=== PATIENT | male | born 1930 | race Caucasian/White ===

== ENCOUNTER 2017-09-11 15:33 | Inpatient (IN) | payer MEDICARE ==
[~2017-09-11] VITALS: Ht 172.7 cm; Wt 77.8 kg
[~2017-09-11 15:33] MED LIST: ASPI1TAB69 PO; ATOR40TA16 PO; CALC1TAB12 PO; FISH1200 PO; MULT-6 PO
[2017-09-11 15:35] VITALS: BP 174/95; PULSE 115; RESP 18; TEMP 99.6; O2SAT 96
[2017-09-11 16:27] LABS: AUTOMATED NEUTROPHIL # 10.3 TH/MM3 (1.8-7.7); BASOPHIL # 0.1 TH/MM3 (0-0.2); BASOPHIL % 0.6 % (0.0-2.0); EOSINOPHIL # 0.1 TH/MM3 (0-0.4); EOSINOPHIL % 0.5 % (0.0-4.0); HEMATOCRIT 39.5 % (39.0-51.0); LYMPH % 6.4 % (9.0-44.0); LYMPHOCYTE # 0.8 TH/MM3 (1.0-4.8); MEAN CELL VOLUME 86.8 FL (80.0-100.0); MEAN CORPUSCULAR HEMOGLOBIN 28.5 PG (27.0-34.0); MEAN CORPUSCULAR HGB CONC 32.9 % (32.0-36.0); MONO % 7.2 % (0.0-8.0); MONOCYTE # 0.9 TH/MM3 (0-0.9); NEUT % 85.3 % (16.0-70.0); PLATELET COUNT 169 TH/MM3 (150-450); RED BLOOD COUNT 4.55 MIL/MM3 (4.50-5.90); WHITE BLOOD COUNT 12.1 TH/MM3 (4.0-11.0)
--- NOTE | 2017-09-11 16:33 | RADRPT ---
EXAM DATE/TIME: 09/11/2017 16:19 [facility] COMPARISON: No previous studies available for comparison. INDICATIONS : Short of breath. MEDICAL HISTORY : Hypertension. Arthritis. Melanoma. Atrial fibrillation. Coronary artery disease. SURGICAL HISTORY : CABG. Appendectomy. Back surgery. Skin cancer removal. Radiation therapy. Blood transfusions. ENCOUNTER: Initial ACUITY: 2 days PAIN SCORE: 0/10 LOCATION: Bilateral chest FINDINGS: Frontal and lateral views of the chest demonstrate a mildly enlarged cardiac silhouette in this patie nt post median sternotomy and CABG. There is a small right basilar pleural-parenchymal opacity and aguilar btle opacity at the left lung base. No pneumothorax is identified. The bones and soft tissues demonst rate no acute finding. CONCLUSION: 1. Small bilateral pleural effusions, right larger than left, with associated atelectasis and/or airs pace consolidation. 2. 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 Arnulfo Simmons MD on September 11, 2017 at 16:29 Board Certified Radiologist. This report was verified electronically.
[2017-09-11 16:43] LABS: INTERNATIONAL NORMALIZED RATIO 1.6 RATIO
[2017-09-11 16:57] LABS: ALBUMIN 2.9 GM/DL (3.4-5.0); AST (GOT) 30 U/L (15-37); BLOOD UREA NITROGEN 20 MG/DL (7-18); CALCIUM 8.6 MG/DL (8.5-10.1); CHLORIDE 108 MEQ/L (98-107); CREATININE 1.22 MG/DL (0.60-1.30); GLOMERULAR FILTRATION RATE 56 ML/MIN (>89); GLUCOSE,RANDOM 194 MG/DL (74-106); MAGNESIUM 2.1 MG/DL (1.5-2.5); SODIUM (NA) 141 MEQ/L (136-145)
[2017-09-11 17:04] LABS: ALKALINE PHOSPHATASE 172 U/L (45-117); ALT (GPT) 37 U/L (12-78); TOTAL BILIRUBIN ADULT 1.1 MG/DL (0.2-1.0); TOTAL PROTEIN 6.9 GM/DL (6.4-8.2); TROPONIN I 0.07 NG/ML (0.02-0.05)
[2017-09-11] MEDS ORDERED: FURO20TA PO (17:30)
[2017-09-11] MEDS ORDERED: MULT-65 PO (17:30)
[2017-09-11] MEDS ORDERED: ASPI81CH6 CHEW (17:30)
[2017-09-11 17:36] VITALS: BP 152/80; PULSE 101; RESP 29; O2SAT 98
--- NOTE | 2017-09-11 18:22 | PD ---
HPI Chief Complaint: Edema Time Seen by Provider: 17:27 Travel History International Travel<30 days: No Contact w/Intl Traveler<30days: No Traveled to known affect area: No History of Present Illness HPI This is not an 86-year-old male who presents to the emergency department with increasing swelling in his right arm in legs for 3 weeks, constant, severe, worsening associated with shortness of breath dyspnea on exertion. He is a very poor historian. He follows with Dr. Phoenix who is his action finisher. He says he's had some changes in his diuretics but he can't tell me what medications he is on. PFSH Past Medical History Hx Anticoagulant Therapy: Yes (Aspirin) Arthritis: Yes Atrial Fibrillation: Yes Blood Disorders: No Cancer: Yes (MELANOMA ) Cardiovascular Problems: Yes (CABG) Chemotherapy: No Chest Pain: No Congestive Heart Failure: No Coronary Artery Disease: Yes Diminished Hearing: No Endocrine: No Genitourinary: Yes Hypertension: Yes Immune Disorder: No Implanted Vascular Access Dvce: Yes Musculoskeletal: Yes Neurologic: No Psychiatric: No Reproductive: No Respiratory: No Radiation Therapy: Yes (MELANOMA) Influenza Vaccination: No Past Surgical History Abdominal Surgery: No Appendectomy: Yes Body Medical Devices: IMPLANTS FROM BACK SURGERY (L4 AND L5) Cardiac Surgery: No Coronary Artery Bypass Graft: Yes (6 BYPASS) Ear Surgery: No Endocrine Surgery: No Eye Surgery: No Genitourinary Surgery: No Gynecologic Surgery: No Oral Surgery: No Thoracic Surgery: No Other Surgery: Yes (APPENDECTOMY 15YRS. OLD, SKIN CA REMOVAL FROM BACK) Social History Alcohol Use: No Tobacco Use: No Substance Use: No Allergies-Medications (Allergen,Severity, Reaction): Coded Allergies: No Known Allergies (Verified , 10/19/16) Reported Meds & Prescriptions Reported Meds & Active Scripts Active Reported Furosemide 20 Mg Tab 20 Mg PO DAILY Multi-Vitamin Daily (Multiple Vitamin) 1 Tab Tab 1 Tab PO DAILY Aspirin Low Dose (Aspirin) 81 Mg Chew 81 Mg CHEW DAILY Fish Oil 1200 mg (Tye-3 Fatty Acids) 1 Cap Cap 1 Cap PO DAILY Calcium 500 +D (Calcium Carbonate-Cholecalciferol) 500-400 Mg-Unit Tab 1 Tab PO DAILY Atorvastatin (Atorvastatin Calcium) 40 Mg Tab 40 Mg PO HS Review of Systems Except as stated in HPI: all other systems reviewed are Neg Physical Exam Narrative GENERAL:Well appearing, no acute distress SKIN: Focused skin assessment warm and dry. HEAD: Atraumatic. Normocephalic. EYES: Pupils equal and round. No injection or drainage. ENT: Moist mucous membranes NECK: Trachea midline. CARDIOVASCULAR: Regular rate and rhythm. No murmur appreciated. 2+ bilateral lower extremity pitting edema, edema of the right upper extremity with swelling of the right hand. RESPIRATORY: Rales in the bilateral lung bases, tachypneic GASTROINTESTINAL: Abdomen soft, non-tender, nondistended. MUSCULOSKELETAL: No obvious deformities. NEUROLOGICAL: Awake and alert. No obvious cranial nerve deficits. Moving all extremities. PSYCHIATRIC: Appropriate mood and affect; insight and judgment normal. Data Data Last Documented VS Vital Signs Date Time Temp Pulse Resp B/P (MAP) Pulse Ox O2 Delivery O2 Flow Rate FiO2 09/11/17 17:37 108 29 94 Nasal Cannula 2.00 09/11/17 17:36 152/80 (104) 09/11/17 15:35 99.6 Orders Orders Complete Blood Count With Diff (09/11/17 15:42) Comprehensive Metabolic Panel (09/11/17 15:42) B-Type Natriuretic Peptide (09/11/17 15:42) Act Partial Throm Time (Ptt) (09/11/17 15:42) Prothrombin Time / Inr (Pt) (09/11/17 15:42) Magnesium (Mg) (09/11/17 15:42) Ckmb (Isoenzyme) Profile (09/11/17 15:42) Troponin I (09/11/17 15:42) Electrocardiogram (09/11/17 15:42) Chest, Pa & Lat (09/11/17 15:42) CKMB (09/11/17 15:58) CKMB% (09/11/17 15:58) Furosemide Inj (Lasix Inj) (09/11/17 18:45) Admit Order (Ed Use Only) (09/11/17 18:47) Labs Laboratory Tests Test 09/11/17 15:58 White Blood Count 12.1 TH/MM3 Red Blood Count 4.55 MIL/MM3 Hemoglobin 13.0 GM/DL Hematocrit 39.5 % Mean Corpuscular Volume 86.8 FL Mean Corpuscular Hemoglobin 28.5 PG Mean Corpuscular Hemoglobin Concent 32.9 % Red Cell Distribution Width 18.0 % Platelet Count 169 TH/MM3 Mean Platelet Volume 10.0 FL Neutrophils (%) (Auto) 85.3 % Lymphocytes (%) (Auto) 6.4 % Monocytes (%) (Auto) 7.2 % Eosinophils (%) (Auto) 0.5 % Basophils (%) (Auto) 0.6 % Neutrophils # (Auto) 10.3 TH/MM3 Lymphocytes # (Auto) 0.8 TH/MM3 Monocytes # (Auto) 0.9 TH/MM3 Eosinophils # (Auto) 0.1 TH/MM3 Basophils # (Auto) 0.1 TH/MM3 CBC Comment DIFF FINAL Differential Comment Prothrombin Time 16.0 SEC Prothromb Time International Ratio 1.6 RATIO Activated Partial Thromboplast Time 31.4 SEC Blood Urea Nitrogen 20 MG/DL Creatinine 1.22 MG/DL Random Glucose 194 MG/DL Total Protein 6.9 GM/DL Albumin 2.9 GM/DL Calcium Level 8.6 MG/DL Magnesium Level 2.1 MG/DL Alkaline Phosphatase 172 U/L Aspartate Amino Transf (AST/SGOT) 30 U/L Alanine Aminotransferase (ALT/SGPT) 37 U/L Total Bilirubin 1.1 MG/DL Sodium Level 141 MEQ/L Potassium Level 4.3 MEQ/L Chloride Level 108 MEQ/L Carbon Dioxide Level 24.0 MEQ/L Anion Gap 9 MEQ/L Estimat Glomerular Filtration Rate 56 ML/MIN Total Creatine Kinase 115 U/L Creatine Kinase MB 4.8 NG/ML Troponin I 0.07 NG/ML B-Type Natriuretic Peptide 1164 PG/ML MDM Medical Decision Making Medical Screen Exam Complete: Yes Emergency Medical Condition: Yes Interpretation(s) Temperatures 99.6, tachycardic, hypertensive Leukocytosis 85% neutrophils Electrolytes are reassuring BNP 1164 Chest x-ray demonstrates small bilateral pleural effusions Differential Diagnosis Congestive heart failure, volume overload, DVT Narrative Course This was an 86-year-old male who presents to the emergency department with increasing swelling of the bilateral lower extremities as well as the right upper extremity in addition to shortness of breath or dyspnea on exertion. Patient has very poor historian it does not have a medication list with him. I spoke to his primary care doctor Dr. Bryant who says that he has increased the patient's Lasix dose in the setting of increasing volume overload. He says his diagnosis of congestive heart failure was relatively new. He follows with Dr. Phoenix as an outpatient. The patient was placed on a monitor in an IV was established. Labs were obtained which demonstrated BNP of 1100. Chest x-ray demonstrates bilateral pleural effusions. On exam the patient becomes hypoxic to 88% with minimal exertion in his quite tachypneic when he moves around in bed. I think the patient requires admission for IV diuresis and cardiology evaluation. Physician Communication Physician Communication Discussed with Dr. mayes Diagnosis Primary Impression: Volume overload Qualified Codes: E87.70 - Fluid overload, unspecified Admitting Information Admitting Physician Requests: Admit Romi Goodman MD Sep 11, 2017 18:22
[2017-09-11] MEDS ORDERED: FUROSEMIDE 40 MG/4 ML VIAL IV PUSH ONE (18:45)
[2017-09-11 19:11] VITALS: BP 166/74; PULSE 98; RESP 20; O2SAT 97
[2017-09-11 20:00] VITALS: BP 141/76; PULSE 87; RESP 18; TEMP 98.2; O2SAT 93
--- NOTE | 2017-09-11 20:29 | HHI.HP ---
HPI Service CP Hospitalists Primary Care Physician Non-Staff Admission Diagnosis congestive heart failure Chief Complaint: Edema in legs and right arm, sob Travel History International Travel<30 Days: No Contact w/Intl Traveler <30 Da: No Traveled to Known Affected Are: No History of Present Illness This is an 86-year-old male who is an extremely poor historian but appears to have history of atrial fibrillation/type 2 diabetes/hypertension/coronary artery disease who presents to the emergency department with increasing swelling in his right arm and both legs for 3 weeks, constant, severe, worsening associated with shortness of breath dyspnea on exertion. He follows with Dr. Phoenix who is his learning designer. He says he's had some changes in his diuretics but he can't tell me what medications he is on. He also reports that he been placed on warfarin recently but does not know the dose. His daughter who lives next door and provides some of his care is present and also does not know his medication dosing but says she will bring it tomorrow. Review of outpatient records is limited as he sees a non-anticipating primary care physician with [facility] so [facility] EMR records are minimal. Patient denies any fever area denies trauma or known arthropod bite to the right arm. He reports the main reason he came to the ER if the swelling in the right upper extremity. Denies any drainage but says he has noted redness and pain particularly in the right hand over the last couple of days. He also reports that he has had his normal amount of urine output but that he has trouble urinating due to an apparent large scrotal collection of fluid and atrophy of the penile glans and shaft. Review of Systems ROS Limitations: Poor Historian Constitutional: COMPLAINS OF: Fatigue Ears, nose, mouth, throat: COMPLAINS OF: Hearing loss Respiratory: COMPLAINS OF: Shortness of breath, DENIES: Apneas, Cough, Snoring , Wheezing, Hemoptysis, Sputum production Cardiovascular: COMPLAINS OF: Dyspnea on Exertion, Lower Extremity Edema, Orthopnea, DENIES: Chest pain, Palpitations, Syncope, PND, Claudication Gastrointestinal: DENIES: Abdominal pain, Black stools, Bloody stools, BRB per rectum, Constipation, Diarrhea, GERD, Nausea, Reflux, Vomiting, Difficulty Swallowing, Anorexia, See HPI Genitourinary: COMPLAINS OF: Urinary incontinence Musculoskeletal: COMPLAINS OF: Joint pain, Back pain Hematologic/lymphatic: COMPLAINS OF: Bruising Neurologic: COMPLAINS OF: Abnormal gait, Poor Balance Psychiatric: COMPLAINS OF: Confusion Past Family Social History Past Medical History History of SVT status post ablation in 2009 Mitral regurgitation Hypertension Hyperlipidemia Carotid stenosis and coronary artery disease Type 2 diabetes, atrial fibrillation Memory impairment Auditory impairment Past Surgical History Ablation for SVT in 2009 Distant history of CABG times reportedly 5 vessels per daughter. Reported Medications Patient is unsure of his medications and did not bring a list. Out patient record review from May 2017 reviewed. Aspirin 81 mg a day Fish oil 1200 mg a day Multivitamin once a day Lasix 20 mg daily Warfarin unclear dose. 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 Poor historian, hard of hearing. SKIN: Purpuric rash bilateral forearms slightly worse on the right. Erythema on the right hand dorsally and also of the right medial forearm with no obvious open wound or drainage. Cirrhosis. HEAD: Atraumatic. Normocephalic. No temporal or scalp tenderness. EYES: Pupils equal round and reactive. Extraocular motions intact. No scleral icterus. No injection or drainage. ENT: Nose without bleeding, purulent drainage or septal hematoma. Airway patent. NECK: Trachea midline. No JVD or lymphadenopathy. Supple, nontender, no meningeal signs. CARDIOVASCULAR: Irregularly irregular with rate around 100 on my exam. 2/6 systolic ejection murmur. No rub. RESPIRATORY: Coarse breath sounds throughout. Decreased breath sounds in the bases. Fair air movement. No wheeze. GASTROINTESTINAL: Abdomen soft, non-tender, nondistended. No hepato-splenomegaly , or palpable masses. No guarding. MUSCULOSKELETAL: Right upper extremity with 2+ edema and starting in the dorsum of the hand and going up to the mid upper arm with associated erythema as above. 2+ edema bilateral lower extremities up to mid fonseca. Moves all extremities to command but right hand business initiatives manager somewhat limited due to edema in that right hand. No calf tenderness. NEUROLOGICAL: Awake and alert. Baseline confusion per daughter. Cranial nerves II through XII intact. Motor and sensory grossly within normal limits. Five out of 5 muscle strength in all muscle groups. Normal speech. : Edematous scrotum with atrophic penis and evidence of urinary incontinence Laboratory Laboratory Tests Test 09/11/17 15:58 White Blood Count 12.1 Red Blood Count 4.55 Hemoglobin 13.0 Hematocrit 39.5 Mean Corpuscular Volume 86.8 Mean Corpuscular Hemoglobin 28.5 Mean Corpuscular Hemoglobin Concent 32.9 Red Cell Distribution Width 18.0 Platelet Count 169 Mean Platelet Volume 10.0 Neutrophils (%) (Auto) 85.3 Lymphocytes (%) (Auto) 6.4 Monocytes (%) (Auto) 7.2 Eosinophils (%) (Auto) 0.5 Basophils (%) (Auto) 0.6 Neutrophils # (Auto) 10.3 Lymphocytes # (Auto) 0.8 Monocytes # (Auto) 0.9 Eosinophils # (Auto) 0.1 Basophils # (Auto) 0.1 CBC Comment DIFF FINAL Differential Comment Prothrombin Time 16.0 Prothromb Time International Ratio 1.6 Activated Partial Thromboplast Time 31.4 Blood Urea Nitrogen 20 Creatinine 1.22 Random Glucose 194 Total Protein 6.9 Albumin 2.9 Calcium Level 8.6 Magnesium Level 2.1 Alkaline Phosphatase 172 Aspartate Amino Transf (AST/SGOT) 30 Alanine Aminotransferase (ALT/SGPT) 37 Total Bilirubin 1.1 Sodium Level 141 Potassium Level 4.3 Chloride Level 108 Carbon Dioxide Level 24.0 Anion Gap 9 Estimat Glomerular Filtration Rate 56 Total Creatine Kinase 115 Creatine Kinase MB 4.8 Troponin I 0.07 B-Type Natriuretic Peptide 1164 Result Diagram: 09/11/17 1558 09/11/17 1558 Imaging Last 72 hours Impressions Chest X-Ray 09/11/17 1542 Signed Impressions: Service Date/Time: Monday, September 11, 2017 16:19 - CONCLUSION: 1. Small bilateral pleural effusions, right larger than left, with associated atelectasis and/or airspace consolidation. 2. 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 MD Jaimie Gorman VTE Risk Assessment Jaimie VTE Risk Assessment: Mod/High Risk (score >= 2) Caprini Risk Assessment Model Point Value = 1 Point Value = 2 Point Value = 3 Point Value = 5 Age 41-60 Minor surgery BMI > 25 kg/m2 Swollen legs Varicose veins or History of unexplained or recurrent spontaneous Oral contraceptives or hormone replacement Sepsis (< 1 month) Serious lung disease, including pneumonia (< 1 month) Abnormal pulmonary function Acute myocardial infarction Congestive heart failure (< 1 month) History of inflammatory bowel disease Medical patient at bed rest Age 61-74 Arthroscopic surgery Major open surgery (> 45 min) Laparoscopic surgery (> 45 min) Malignancy Confined to bed (> 72 hours) Immobilizing plaster cast Central venous access Age >= 75 History of VTE Family history of VTE Factor V Leiden Prothrombin [id number] Lupus anticoagulant Anticardiolipin antibodies Elevated serum homocysteine Heparin-induced thrombocytopenia Other congenital or acquired thrombophilia Stroke (< 1 month) Elective arthroplasty Hip, pelvis, or leg fracture Acute spinal cord injury (< 1 month) Prophylaxis Regimen Total Risk Factor Score Risk Level Prophylaxis Regimen 0-1 Low Early ambulation 2 Moderate Order ONE of the following: *Sequential Compression Device (SCD) *Heparin 5000 units SQ BID 3-4 Higher Order ONE of the following medications: *Heparin 5000 units SQ TID *Enoxaparin/Lovenox 40 mg SQ daily (WT < 150 kg, CrCl > 30 mL/min) *Enoxaparin/Lovenox 30 mg SQ daily (WT < 150 kg, CrCl > 10-29 mL/min) *Enoxaparin/Lovenox 30 mg SQ BID (WT < 150 kg, CrCl > 30 mL/min) AND/OR *Sequential Compression Device (SCD) 5 or more Highest Order ONE of the following medications: *Heparin 5000 units SQ TID (Preferred with Epidurals) *Enoxaparin/Lovenox 40 mg SQ daily (WT < 150 kg, CrCl > 30 mL/min) *Enoxaparin/Lovenox 30 mg SQ daily (WT < 150 kg, CrCl > 10-29 mL/min) *Enoxaparin/Lovenox 30 mg SQ BID (WT < 150 kg, CrCl > 30 mL/min) AND *Sequential Compression Device (SCD) Assessment and Plan Problem List: (1) Cellulitis ICD Codes: L03.90 - Cellulitis, unspecified Status: Acute Plan: Check cultures and start antibiotic. Elevate right upper extremity. Check ultrasound right upper extremity given the asymmetric edema. (2) Diabetes mellitus type 2 in obese ICD Codes: E11.69 - Type 2 diabetes mellitus with other specified complication ; E66.9 - Obesity, unspecified Status: Chronic Plan: Diabetic diet, Accu-Chek, sliding scale insulin (3) Hyperlipidemia ICD Codes: E78.5 - Hyperlipidemia, unspecified Plan: Doesn't appear to be on statin as an outpatient. Not sure how aggressive the family wishes to be at this point with secondary preventative care. Can be further addressed in coming days were outpatient. (4) Hypertension ICD Codes: I10 - Essential (primary) hypertension Status: Chronic Plan: Provide blood pressure medication as needed. (5) Atrial fibrillation ICD Codes: I48.91 - Unspecified atrial fibrillation Plan: Reportedly on warfarin which was started recently per patient and daughter. Unsure of dose. We'll check INR Not sure how aggressive I would chronically anticoagulate him giving his other comorbidities and possible fall risk at home. (6) Urinary incontinence ICD Codes: R32 - Unspecified urinary incontinence Status: Chronic Plan: Has significant scrotal edema and possible hydrocele. Apparently has seen urologist as an outpatient. Provide Dangelo for accurate output determination and to avoid irritation from urinary incontinence. Check ultrasound. (7) Volume overload ICD Codes: E87.70 - Fluid overload, unspecified Status: Acute Plan: About diuretic. Strict I&O. Check echocardiogram. Code Status full Discussed Condition With Pt, his daughter and ER provider. Physician Certification 2 Midnight Certification Type: Admission for Inpatient Services Order for Inpatient Services The services are ordered in accordance with Medicare regulations or non- Medicare payer requirements, as applicable. In the case of services not specified as inpatient-only, they are appropriately provided as inpatient services in accordance with the 2-midnight benchmark. Estimated LOS (days): 3 days is the estimated time the patient will need to remain in the hospital, assuming treatment plan goals are met and no additional complications. Post-Hospital Plan: Not yet determined Problem Qualifiers (1) Cellulitis: Qualified Codes: L03.113 - Cellulitis of right upper limb (2) Hyperlipidemia: Qualified Codes: E78.00 - Pure hypercholesterolemia, unspecified (3) Hypertension: Qualified Codes: I10 - Essential (primary) hypertension (4) Atrial fibrillation: Qualified Codes: I48.2 - Chronic atrial fibrillation (5) Volume overload: Qualified Codes: E87.70 - Fluid overload, unspecified Gee Ocasio MD PhD Sep 11, 2017 20:29
[2017-09-11] MEDS ORDERED: GLUCAGON 1 MG/ML VIAL OTHER PRN (20:45)
[2017-09-11] MEDS ORDERED: DEXTROSE 50% IN WATER 50 ML VIAL(D50) IV PUSH PRN (20:45)
[2017-09-11] MEDS ORDERED: traMADol HCL 50 MG TAB PO PRN (20:45)
[2017-09-11] MEDS ORDERED: VANCOMYCIN INJ 200 ML IV ONE (20:45)
[2017-09-11] MEDS ORDERED: VANCOMYCIN 1,000 MG/NS 250 ML IV ONE ×2 (21:00)
[2017-09-11] MEDS ORDERED: PILL SPLITTER OTHER PRN (21:00)
[2017-09-11] MEDS: INSULIN ASPART SUPPLEMENTAL SCALE SQ SCH (21:00)
--- NOTE | 2017-09-11 22:10 | RADRPT ---
EXAM DATE/TIME: 09/11/2017 21:09 [facility] COMPARISON: No previous studies available for comparison. INDICATIONS : Right arm swelling. MEDICAL HISTORY : Hypertension. Coronary artery disease. Hyperlipidemia. Atrial fibrillation. Dyspnea. Melanoma. SURGICAL HISTORY : CABG Appendectomy. Bilateral cataract surgery. Back surgery. Skin cancer removal. ENCOUNTER: Initial ACUITY: 1 week PAIN SCORE: 5/10 LOCATION: Right arm. FINDINGS: There is spontaneous flow documented in the brachial, basilic, cephalic, axillary, and subclavian vei ns. The vessels are compressible and augmentation response is documented. No filling defects are se en. The flow is phasic with respiration. Direction of flow in the jugular vein is caudal. CONCLUSION: Normal examination. Rick Pizano Jr., MD on September 11, 2017 at 22:06 Board Certified Radiologist. This report was verified electronically.
--- NOTE | 2017-09-11 22:13 | RADRPT ---
EXAM DATE/TIME: 09/11/2017 21:23 [facility] COMPARISON: No previous studies available for comparison. INDICATIONS : Scrotal edema. MEDICAL HISTORY : Hypertension. Coronary artery disease. Hyperlipidemia. Atrial fibrillation. Dyspnea. Melanoma. SURGICAL HISTORY : CABG Appendectomy.Bilateral cataract surgery. Back surgery. Skin cancer removal. ENCOUNTER: Initial ACUITY: >1 year PAIN SCORE: 6/10 LOCATION: Bilateral testicles. MEASUREMENTS: RIGHT TESTICLE: 4.7 x 3.4 x 3.3cm LEFT TESTICLE: 4.4 x 3.3 x 1.6 cm FINDINGS: RIGHT TESTICLE: Homogeneous echotexture without intra or extratesticular mass. Blood flow is symmetric and within no rmal limits. No varicocele. Epididymis is within normal limits. There is a very large hernia contai gill fluid in multiple loops of bowel extending into the scrotum. LEFT TESTICLE: Homogeneous echotexture without intra or extratesticular mass. Blood flow is symmetric and within no rmal limits. No varicocele. Small hydrocele. Epididymis is within normal limits. SCROTUM: Within normal limits. CONCLUSION: 1. Large hernia containing fluid and loops of bowel extending into the right scrotum. 2. Small left hydrocele. Rick Pizano Jr., MD on September 11, 2017 at 22:07 Board Certified Radiologist. This report was verified electronically.
[2017-09-11] MEDS: WARFARIN SOD 5 MG TAB PO SCH (22:19)
[2017-09-11] MEDS: METOPROLOL TARTRATE 25 MG TAB PO SCH (22:19)
[2017-09-12] VITALS (9 sets, daily range): BP systolic 126–147; BP diastolic 65–78; PULSE 78–96; RESP 18–24; TEMP 97.2–98; O2SAT 91–97
[2017-09-12] MEDS ORDERED: FUROSEMIDE 20 MG/2 ML VIAL IV PUSH SCH (09:15)
[2017-09-12] MEDS: METOPROLOL TARTRATE 25 MG TAB PO SCH ×2 (09:28→22:07)
[2017-09-12] MEDS: INSULIN ASPART SUPPLEMENTAL SCALE SQ SCH ×4 (09:29→21:00)
--- NOTE | 2017-09-12 10:18 | EKG ---
Date Performed: 09/11/2017 Time Performed: 15:53:13 PTAGE: 86 years EKG: ATRIAL FIBRILLATION WITH ABERRANT CONDUCTION OR VENTRICULAR PREMATURE COMPLEXES INCOMPLETE RIGHT BUNDLE BRANCH BLOCK LEFT ANTERIOR FASCICULAR BLOCK SEPTAL MYOCARDIAL INFARCTION ABNORMAL ECG IN TERPRETATION BASED ON A DEFAULT AGE OF 40 YEARS PREVIOUS TRACING : 12/30/2009 05.24 DOCTOR: Devin Gordon Interpretating Date/Time 09/12/2017 10:17:53
[2017-09-12 12:07] LABS: INTERNATIONAL NORMALIZED RATIO 1.2 RATIO; PROTHROMBIN TIME - PATIENT 12.4 SEC (9.8-11.6)
[2017-09-12 12:27] LABS: ALBUMIN 2.5 GM/DL (3.4-5.0); ALT (GPT) 37 U/L (12-78); AST (GOT) 40 U/L (15-37); BLOOD UREA NITROGEN 19 MG/DL (7-18); CALCIUM 8.3 MG/DL (8.5-10.1); CHLORIDE 108 MEQ/L (98-107); CREATININE 1.19 MG/DL (0.60-1.30); GLOMERULAR FILTRATION RATE 58 ML/MIN (>89); GLUCOSE,RANDOM 158 MG/DL (74-106); SODIUM (NA) 142 MEQ/L (136-145)
[2017-09-12 12:36] LABS: ALKALINE PHOSPHATASE 139 U/L (45-117); TOTAL BILIRUBIN ADULT 1.5 MG/DL (0.2-1.0); TOTAL PROTEIN 6.3 GM/DL (6.4-8.2); TROPONIN I 0.15 NG/ML (0.02-0.05)
--- NOTE | 2017-09-12 15:36 | ECHRPT ---
Indication: Persistent atrial fibrillation CONCLUSIONS The left ventricular systolic function is kqilvacu-wt-qfeirlb reduced with an estimated ejection fra ction in the range of 35-40%. Mild concentric left ventricular hypertrophy. Mildly dilated left ventricle. The left atrial size is moderately dilated. The right atrial size is ggtj-xr-nohdcqffhn dilated. Diffuse calcification of the aortic valve. Looy-iz-bahvbsnd aortic valve regurgitation. av mean gradient = 18 mm hg, reduced lv systolic function may be masking a more severe gradient so would estimate that there is at least moderate aortic valve stenosis. Aortic valve area is 1.0 cm. severe mitral valve regurgitation. There is severe tricuspid regurgitation. The estimated pulmonary arterial pressure is 69.9 mmHg. There is estimated bxkzvvwn-pj-rokmqe pulmonary hypertension present (range 60-70 mmHg). Mild pulmonary valve regurgitation. Trace pericardial effusion. BP: 127 / 75 HR: 89 Rhythm: Atrial fibrillation MEASUREMENTS (Male / Female) Normal Values Technical Quality:Good 2D ECHO LV Diastolic Diameter PLAX 5.6 cm 4.2 - 5.9 / 3.9 - 5.3 cm LV Systolic Diameter PLAX 4.7 cm IVS Diastolic Thickness 1.4 cm 0.6 - 1.0 / 0.6 - 0.9 cm LVPW Diastolic Thickness 1.1 cm 0.6 - 1.0 / 0.6 - 0.9 cm LV Relative Wall Thickness 0.5 LVOT Diameter 2.1 cm M-MODE Aortic Root Diameter MM 3.7 cm LA Systolic Diameter MM 5.5 cm LA Ao Ratio MM 1.5 AV Cusp Separation MM 1.4 cm DOPPLER AV Peak Velocity 271.4 cm/s AV Peak Gradient 29.5 mmHg AV Mean Gradient 16.7 mmHg AV Velocity Time Integral 54.1 cm AI Peak Velocity 372.7 cm/s AI Peak Gradient 55.6 mmHg AI Pressure Half Time 578.0 ms LVOT Peak Velocity 79.0 cm/s LVOT Peak Gradient 2.5 mmHg AV Area Cont Eq pk 1.0 cm MR Peak Velocity 529.0 cm/s MR Peak Gradient 111.9 mmHg TR Peak Velocity 387.0 cm/s TR Peak Gradient 59.9 mmHg Right Atrial Pressure 10.0 mmHg Pulmonary Artery Systolic Pressu 69.9 mmHg Right Ventricular Systolic Press 69.9 mmHg PV Peak Velocity 124.0 cm/s PV Peak Gradient 6.2 mmHg FINDINGS LEFT VENTRICLE The left ventricular systolic function is wvwvdwuz-ra-cjnszwl reduced with an estimated ejection fra ction in the range of 35-40%. Mild concentric left ventricular hypertrophy. Mildly dilated left ventricle. RIGHT VENTRICLE Normal right ventricular size and systolic function. LEFT ATRIUM The left atrial size is moderately dilated. RIGHT ATRIUM The right atrial size is xhit-la-kcxlyabxjo dilated. ATRIAL SEPTUM Normal atrial septal thickness without atrial level shunting by limited color doppler interrogation. AORTA The aortic root and proximal ascending aorta are normal in size on limited imaging. MITRAL VALVE Ptuzcifn-xs-hjkogv mitral valve regurgitation. AORTIC VALVE Diffuse calcification of the aortic valve. Fqvg-sh-lafuboxd aortic valve regurgitation. Mild aortic valve stenosis. Aortic valve area is 1.0 cm. TRICUSPID VALVE There is severe tricuspid regurgitation. The estimated pulmonary arterial pressure is 69.9 mmHg. There is estimated ipvoonhj-wf-bofxok pulmonary hypertension present (range 60-70 mmHg). PULMONARY VALVE Mild pulmonary valve regurgitation. VESSELS The inferior vena cava is normal in size. PERICARDIUM Trace pericardial effusion. Ari Alcantar MD, FACC, [facility] (Electronically Signed) Final Date:12 September 2017 15:35
--- NOTE | 2017-09-12 16:06 | HHI.PR ---
Subjective Remarks appears confused granddaughter is at bedside reports that patient mental status and independent function has been declining over the past year Objective Vitals Vital Signs Date Time Temp Pulse Resp B/P (MAP) Pulse Ox O2 Delivery O2 Flow Rate FiO2 09/12/17 12:29 97.2 80 20 126/77 (93) 93 09/12/17 08:52 97.2 88 20 128/75 (92) 91 09/12/17 06:36 Nasal Cannula 3.00 09/12/17 04:00 89 09/12/17 04:00 97.8 86 20 127/75 (92) 97 09/12/17 00:00 98.0 94 18 128/65 (86) 93 09/12/17 00:00 96 09/12/17 00:00 Nasal Cannula 3.00 09/11/17 20:30 Nasal Cannula 3.00 09/11/17 20:25 09/11/17 20:00 98.2 87 18 141/76 (97) 93 09/11/17 19:11 98 20 166/74 (104) 97 Nasal Cannula 2.00 09/11/17 17:37 108 29 94 Nasal Cannula 2.00 09/11/17 17:36 101 29 152/80 (104) 98 Nasal Cannula 2.00 Result Diagram: 09/11/17 1558 09/12/17 1020 Other Results Laboratory Tests Test 09/11/17 15:58 09/11/17 21:20 09/12/17 10:20 White Blood Count 12.1 TH/MM3 Red Blood Count 4.55 MIL/MM3 Hemoglobin 13.0 GM/DL Hematocrit 39.5 % Mean Corpuscular Volume 86.8 FL Mean Corpuscular Hemoglobin 28.5 PG Mean Corpuscular Hemoglobin Concent 32.9 % Red Cell Distribution Width 18.0 % Platelet Count 169 TH/MM3 Mean Platelet Volume 10.0 FL Neutrophils (%) (Auto) 85.3 % Lymphocytes (%) (Auto) 6.4 % Monocytes (%) (Auto) 7.2 % Eosinophils (%) (Auto) 0.5 % Basophils (%) (Auto) 0.6 % Neutrophils # (Auto) 10.3 TH/MM3 Lymphocytes # (Auto) 0.8 TH/MM3 Monocytes # (Auto) 0.9 TH/MM3 Eosinophils # (Auto) 0.1 TH/MM3 Basophils # (Auto) 0.1 TH/MM3 CBC Comment DIFF FINAL Differential Comment Prothrombin Time 16.0 SEC 12.4 SEC Prothromb Time International Ratio 1.6 RATIO 1.2 RATIO Activated Partial Thromboplast Time 31.4 SEC Blood Urea Nitrogen 20 MG/DL 19 MG/DL Creatinine 1.22 MG/DL 1.19 MG/DL Random Glucose 194 MG/DL 158 MG/DL Total Protein 6.9 GM/DL 6.3 GM/DL Albumin 2.9 GM/DL 2.5 GM/DL Calcium Level 8.6 MG/DL 8.3 MG/DL Magnesium Level 2.1 MG/DL Alkaline Phosphatase 172 U/L 139 U/L Aspartate Amino Transf (AST/SGOT) 30 U/L 40 U/L Alanine Aminotransferase (ALT/SGPT) 37 U/L 37 U/L Total Bilirubin 1.1 MG/DL 1.5 MG/DL Sodium Level 141 MEQ/L 142 MEQ/L Potassium Level 4.3 MEQ/L 4.1 MEQ/L Chloride Level 108 MEQ/L 108 MEQ/L Carbon Dioxide Level 24.0 MEQ/L 29.0 MEQ/L Anion Gap 9 MEQ/L 5 MEQ/L Estimat Glomerular Filtration Rate 56 ML/MIN 58 ML/MIN Total Creatine Kinase 115 U/L Creatine Kinase MB 4.8 NG/ML Troponin I 0.07 NG/ML 0.15 NG/ML B-Type Natriuretic Peptide 1164 PG/ML Thyroid Stimulating Hormone 3rd Gen 2.120 uIU/ML Imaging Last 72 hours Impressions Chest X-Ray 09/11/17 1542 Signed Impressions: Service Date/Time: Monday, September 11, 2017 16:19 - CONCLUSION: 1. Small bilateral pleural effusions, right larger than left, with associated atelectasis and/or airspace consolidation. 2. 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 Arnulfo Simmons MD Objective Remarks GENERAL: This is a well-nourished, well-developed patient, in no apparent distress. Poor historian, hard of hearing. SKIN: Purpuric rash bilateral forearms slightly worse on the right. Erythema on the right hand dorsally and also of the right medial forearm with no obvious open wound or drainage. Cirrhosis. HEAD: Atraumatic. Normocephalic. No temporal or scalp tenderness. CARDIOVASCULAR: Irregularly irregular with systolic ejection murmur. RESPIRATORY: Coarse breath sounds throughout. Decreased breath sounds in the bases. Fair air movement. scatter expiratory wheezing. GASTROINTESTINAL: Abdomen soft, non-tender MUSCULOSKELETAL: Right upper extremity with 2+ edema and starting in the dorsum of the hand and going up to the mid upper arm with associated erythema as above. 2+ edema bilateral lower extremities up to mid fonseca. Moves all extremities to command but right hand vault teller somewhat limited due to edema in that right hand. No calf tenderness. NEUROLOGICAL: Awake and alert. Baseline confusion per grand daughter. No focal deficits noted. Motor and sensory grossly within normal limits. 4 out of 5 muscle strength in all muscle groups. Normal speech. : Edematous scrotum with atrophic penis and evidence of urinary incontinence A/P Problem List: (1) Cellulitis ICD Codes: L03.90 - Cellulitis, unspecified Status: Acute Plan: Patient lives alone his daughter lives next door and helps with the cooking and cleaning follow blood cultures Patient given vancomycin in ER Elevate right upper extremity. ultrasound right upper extremity normal exam Scrotal ultrasound reviewed an reveals Large hernia containing fluid and loops of bowel extending into the right scrotum. Small left hydrocele (2) Diabetes mellitus type 2 in obese ICD Codes: E11.69 - Type 2 diabetes mellitus with other specified complication ; E66.9 - Obesity, unspecified Status: Chronic Plan: Diabetic diet, Accu-Chek, sliding scale insulin (3) Hyperlipidemia ICD Codes: E78.5 - Hyperlipidemia, unspecified Plan: Doesn't appear to be on statin as an outpatient. Not sure how aggressive the family wishes to be at this point with secondary preventative care. Can be further addressed as outpatient. (4) Hypertension ICD Codes: I10 - Essential (primary) hypertension Status: Chronic Plan: Provide blood pressure medication as needed. (5) Atrial fibrillation ICD Codes: I48.91 - Unspecified atrial fibrillation Plan: Reportedly on warfarin which was started recently per patient and daughter. Unsure of dose. INR 1.6 Not sure how aggressive I would chronically anticoagulate him giving his other comorbidities and possible fall risk at home. consult patient's executive cyber leader Dr. Phoenix for further recommendations (6) Urinary incontinence ICD Codes: R32 - Unspecified urinary incontinence Status: Chronic Plan: Has significant scrotal edema and possible hydrocele. Reports he has seen urologist as an outpatient in the past Provide Dangelo for accurate output determination and to avoid irritation from urinary incontinence. Scrotal ultrasound reviewed an reveals Large hernia containing fluid and loops of bowel extending into the right scrotum. Small left hydrocele (7) Volume overload ICD Codes: E87.70 - Fluid overload, unspecified Status: Acute Plan: Patient on Lasix 20 mg PO daily at home Start Lasix 80 mg IV now then 40 mg IV BID reports diuretics have been changed recently per cardiology will consult outpatient executive cyber leader Dr. Phoenix Strict I&O. Echocardiogram pending troponin elevated patient denies chest pain likely demand related will continue to monitor Assessment and Plan Patient examined. Assessment and plan formulated with Cortney Prado PA-C. I agree with the above. Problem Qualifiers (1) Cellulitis: Qualified Codes: L03.113 - Cellulitis of right upper limb (2) Hyperlipidemia: Qualified Codes: E78.00 - Pure hypercholesterolemia, unspecified (3) Hypertension: Qualified Codes: I10 - Essential (primary) hypertension (4) Atrial fibrillation: Qualified Codes: I48.2 - Chronic atrial fibrillation (5) Volume overload: Qualified Codes: E87.70 - Fluid overload, unspecified Cortney Prado Sep 12, 2017 16:06 Nicola Singh DO Sep 13, 2017 23:27
[2017-09-12] MEDS: WARFARIN SOD 5 MG TAB PO SCH (16:48)
[2017-09-12] MEDS ORDERED: RESP: ALBUTEROL 2.5 MG/IPRATROPIUM 0.5 MG NEB (SCH) NEB STA (16:56)
[2017-09-12] MEDS ORDERED: FUROSEMIDE 100 MG/10 ML VIAL IV PUSH ONE (17:00)
[2017-09-12] MEDS ORDERED: VANCOMYCIN INJ 200 ML IV SCH (17:15)
[2017-09-12] MEDS ORDERED: Vancomycin Consult Pharmacy 1 EA OTHER SCH (17:15)
[2017-09-12 17:19] LABS: HEMOGLOBIN A1C 7.2 % (4.3-6.0)
[2017-09-12] MEDS: POTASSIUM CHLORIDE 20 MEQ CONTROLLED RELEASE TAB PO SCH (18:24)
[2017-09-12] MEDS: RESP: ALBUTEROL 2.5 MG/IPRATROPIUM 0.5 MG NEB (SCH) NEB (19:32)
[2017-09-12] MEDS ORDERED: VANCOMYCIN INJ 1,250 MG in SODIUM CHLOR 0.9% 250 ML INJ 250 ML IV ONE (20:00)
--- NOTE | 2017-09-12 21:05 | RADRPT ---
EXAM DATE/TIME: 09/12/2017 20:36 [facility] COMPARISON: CHEST PA & LAT, September 11, 2017, 16:19. INDICATIONS : Shortness of breath MEDICAL HISTORY : Hypertension. Arthritis. Melanoma. Atrial fibrillation. Coronary artery disease. SURGICAL HISTORY : CABG. Appendectomy. Back surgery. Skin cancer removal. Radiation therapy. Blood transfusions ENCOUNTER: Subsequent ACUITY: 3 days PAIN SCORE: 0/10 LOCATION: Bilateral chest FINDINGS: PA and lateral views of the chest reveal an infiltrate within the right lung base. Small right effusi on. Left lung is clear. Heart is enlarged. Pulmonary vascular engorgement. Median sternotomy wires. S coliotic and degenerative spine. CONCLUSION: 1. Cardiomegaly with pulmonary vascular engorgement. 2. Right lower lobe infiltrate. This could relate to focal pulmonary edema or developing infiltrate f rom infectious etiology. Rick Pizano Jr., MD on September 12, 2017 at 21:03 Board Certified Radiologist. This report was verified electronically.
[2017-09-13] VITALS (10 sets, daily range): BP systolic 118–161; BP diastolic 71–99; PULSE 77–99; RESP 18–24; TEMP 97.1–97.6; O2SAT 93–99
[2017-09-13] MEDS: RESP: ALBUTEROL 2.5 MG/IPRATROPIUM 0.5 MG NEB (SCH) NEB ×5 (01:10→16:14)
[2017-09-13] MEDS: INSULIN ASPART SUPPLEMENTAL SCALE SQ SCH ×4 (08:00→20:40)
[2017-09-13] MEDS: METOPROLOL TARTRATE 25 MG TAB PO SCH (08:11)
[2017-09-13] MEDS: POTASSIUM CHLORIDE 20 MEQ CONTROLLED RELEASE TAB PO SCH (08:12)
[2017-09-13] MEDS ORDERED: FUROSEMIDE 40 MG/4 ML VIAL IV PUSH SCH (09:00)
--- NOTE | 2017-09-13 11:12 | RADRPT ---
EXAM DATE/TIME: 09/13/2017 10:42 [facility] COMPARISON: CHEST PA & LAT, September 12, 2017, 20:36. INDICATIONS : Short of breath MEDICAL HISTORY : Hypertension. Arthritis. Melanoma. Atrial fibrillation. Coronary artery disease SURGICAL HISTORY : CABG. Appendectomy. Back surgery. Skin cancer removal. Radiation therapy. Blood transfusions ENCOUNTER: Subsequent ACUITY: 4 - 6 days PAIN SCORE: 0/10 LOCATION: Bilateral chest FINDINGS: A single view of the chest demonstrates a patient's had a median sternotomy with numerous sternal wir es and clips. The cardiac silhouette is widened. There is mild pulmonary vascular congestion. There m ay be some atelectasis in the right lung base.. Osseous structures are intact. CONCLUSION: A questionable infiltrate or density in the right lung base. Cardiac silhouette is widened. Devin Ralph MD on September 13, 2017 at 11:09 Board Certified Radiologist. This report was verified electronically.
--- NOTE | 2017-09-13 12:03 | PD.CONS ---
[facility] Cardiology Consult Requested By Kae Prado PA-C Reason for Consult CHF, help with decision making for AC Primary Care Physician Non-Staff History of Present Illness The patient is an 86 year old male with a cardiac history of HLD, moderate , MR, TR, mild carotid stenosis, atrial fibrillation and syncope. The patient has new onset atrial fibrillation 11/2016. Oral AC discussed and elected to hold off at that time. Since the patient's last office visit 06/2017, couamdin was initiated. The patient does not know who prescribed coumadin, or who is following INR. The patient presented to the hospital for progressively worsening BLE edema and RUE edema. Work up is negative for RUE DVT. He does not have evidence of superior vena cava syndrome and echo is negative right atrial mass. The patient states that the right upper extremity continued to get worse despite outpatient diuretic therapy. He denies chest pain or palpitations. Work up reveals CHF, new CMP, severe MR, moderate and atrial fibrillation. Right upper extremity appears to have evidence of cellulitis. (Altagracia Goodman) Review of Systems Consitutional: DENIES: Fatigue, Fever, Chills, Weight gain, Weight loss Eyes: DENIES: Amaurosis Fugax, Change in vision HEENT: DENIES: Lightheadedness, Change in hearing Respiratory: COMPLAINS OF: Shortness of breath, DENIES: See HPI, Cough, Snoring , Wheezing, Sputum production Cardiovascular: DENIES: See HPI, Chest pain, Palpitations, Syncope, Tachycardia Gastrointestinal: DENIES: Nausea, Vomiting, Change in bowel habits, Reflux, Bloody stools, Melena Genitourinary: DENIES: Urinary incontinence, Difficulty voiding Integumentary: DENIES: Rash Neurologic: DENIES: Tingling or numbness, Memory problems, Poor Balance, Stroke symptoms Musculoskeletal: DENIES: Joint pain, Muscle pain, Limited range of motion, Back pain Psychiatric: DENIES: Anxiety, Depression, Sleep disturbances Hematologic: DENIES: Bruising tendencies, Bleeding tendencies Endocrine: DENIES: Weight gain, Weight loss, Thyroid disease (Altagracia Goodman ) Past Family Social History Allergies: Coded Allergies: No Known Allergies (Verified Allergy, Unknown, 09/11/17) Past Medical History See HPI Past Surgical History CABG 2007 Reported Medications Reported Meds & Active Scripts Active Reported Furosemide 20 Mg Tab 20 Mg PO DAILY Multi-Vitamin Daily (Multiple Vitamin) 1 Tab Tab 1 Tab PO DAILY Aspirin Low Dose (Aspirin) 81 Mg Chew 81 Mg CHEW DAILY Fish Oil 1200 mg (Eldon-3 Fatty Acids) 1 Cap Cap 1 Cap PO DAILY Calcium 500 +D (Calcium Carbonate-Cholecalciferol) 500-400 Mg-Unit Tab 1 Tab PO DAILY Atorvastatin (Atorvastatin Calcium) 40 Mg Tab 40 Mg PO HS Active Ordered Medications Current Medications Medications (Trade) Dose Ordered Sig/Sylvia Route Start Time Stop Time Status Last Admin (NovoLOG SUPPLEMENTAL SCALE) 1 ACHS SLIDING SCALE SQ 09/11/17 21:00 09/12/17 21:00 (Lopressor) 12.5 mg Q12HR PO 09/11/17 21:00 09/13/17 08:11 (Coumadin) 5 mg DAILY@1600 PO 09/11/17 20:45 09/12/17 16:48 (Ultram) 50 mg Q8H PRN PO 09/11/17 20:45 (D50w (Vial) Inj) 50 ml UNSCH PRN IV PUSH 09/11/17 20:45 (Glucagon Inj) 1 mg UNSCH PRN OTHER 09/11/17 20:45 (Pill Splitter) 1 ea UNSCH PRN OTHER 09/11/17 21:00 (Lasix Inj) 40 mg BID@09,18 IV PUSH 09/13/17 09:00 09/13/17 08:13 (Duoneb Neb) 1 ampule Q4HR NEB NEB 09/12/17 20:00 09/13/17 08:55 (KCl) 20 meq DAILY PO 09/12/17 17:00 09/13/17 08:12 Pharmacy Profile Note 0 ml @ 0 mls/hr UNSCH OTHER 09/12/17 17:15 Vancomycin HCl 1000 mg/Sodium Chloride 250 ml @ 250 mls/hr Q24H IV 09/13/17 20:00 Miscellaneous Information SPECIFIC LAB TO BE [facility]... ONCE ONCE .XX 09/14/17 19:45 09/14/17 19:46 Family History non contributory Social History lives alone, daughter lives next door (Altagracia Goodman) Physical Exam Vital Signs Vital Signs Date Time Temp Pulse Resp B/P (MAP) Pulse Ox O2 Delivery O2 Flow Rate FiO2 09/13/17 09:58 Nasal Cannula 3.00 09/13/17 08:57 94 Nasal Cannula 3.00 09/13/17 08:05 97.3 96 20 161/77 (105) 94 09/13/17 05:26 94 Nasal Cannula 3.00 09/13/17 04:17 97.4 92 24 133/71 (91) 94 09/13/17 04:00 96 09/13/17 01:11 96 09/13/17 00:00 85 09/12/17 23:40 97.2 78 20 135/74 (94) 94 09/12/17 20:15 97.5 95 24 141/74 (96) 94 09/12/17 20:00 86 09/12/17 18:17 93 Nasal Cannula 3.00 09/12/17 16:37 97.8 93 20 147/78 (101) 93 09/12/17 12:29 97.2 80 20 126/77 (93) 93 Physical Exam GENERAL: elderly female, granddaughter bedside SKIN: Warm and dry. HEAD: Atraumatic. Normocephalic. EYES: Pupils equal and round. No scleral icterus. No injection or drainage. ENT: No nasal bleeding or discharge. Mucous membranes pink and moist. NECK: Trachea midline. CARDIOVASCULAR: Irreg irreg, reg rate, murmur RESPIRATORY: No accessory muscle use. Breath sounds equal bilaterally. rales GASTROINTESTINAL: Abdomen soft, non-tender, nondistended. MUSCULOSKELETAL: RUE edema and cellulitis, BLE edema 1+ NEUROLOGICAL: Awake and alert. No obvious cranial nerve deficits. Normal speech. PSYCHIATRIC: Appropriate mood and affect; insight and judgment normal. Laboratory Date/Time Source Procedure Growth Status 09/11/17 21:20 Blood Peripheral Aerobic Blood Culture - Preliminary NO GROWTH IN 2 DAYS Resulted 09/11/17 21:20 Blood Peripheral Anaerobic Blood Culture - Preliminary NO GROWTH IN 2 DAYS Resulted (Altagracia Goodman) Result Diagram: 09/11/17 1558 09/12/17 1020 Imaging Last 72 hours Impressions Chest X-Ray 09/13/17 0000 Signed Impressions: Service Date/Time: August 10:42 - CONCLUSION: A questionable infiltrate or density in the right lung base. Cardiac silhouette is widened. Devin Ralph MD Chest X-Ray 09/12/17 0000 Signed Impressions: Service Date/Time: Tuesday, September 12, 2017 20:36 - CONCLUSION: 1. Cardiomegaly with pulmonary vascular engorgement. 2. Right lower lobe infiltrate. This could relate to focal pulmonary edema or developing infiltrate from infectious etiology. Rick Pizano Jr., MD Chest X-Ray 09/11/17 1542 Signed Impressions: Service Date/Time: Monday, September 11, 2017 16:19 - CONCLUSION: 1. Small bilateral pleural effusions, right larger than left, with associated atelectasis and/or airspace consolidation. 2. 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 Arnulfo Simmons MD Upper Extremity Ultrasound 09/11/17 0000 Signed Impressions: Service Date/Time: Monday, September 11, 2017 21:09 - CONCLUSION: Normal examination. Rick Pizano Jr., MD Scrotum Ultrasound 09/11/17 0000 Signed Impressions: Service Date/Time: Monday, September 11, 2017 21:23 - CONCLUSION: 1. Large hernia containing fluid and loops of bowel extending into the right scrotum. 2. Small left hydrocele. Rick Pizano Jr., MD (Altagracai Goodman) Assessment and Plan Assessment and Plan Acute systolic CHF exacerbation Moderate Severe MR New CMP Atrial fibrillation rate controlled, on warfarin per PCP? Slight elevation of troponin due to above, the patient denies CP RLL density- ? aspiration PLAN: Aggressive diuresis Start lisinopril Stop metoprolol, start coreg Continue warfarin and discuss with PCP. If the patient and family elect anticoagulation, I would recommend Eliquis to decrease risk for bleeding. The patient was seen and evaluated by Dr Phoenix who completed face to face encounter and physical exam and participated in evaluation and management (Altagracia Goodman) Assessment and Plan The exam, history, and the medical decision-making described in the above note were completed with the assistance of the mid-level provider. I reviewed and agree with the findings presented. I attest that I had a [id number] encounter with the patient on the same day, and personally performed and documented my assessment and findings in the medical record. In view of valve disease may also consider leaving on coumadin. Pt is at risk for falls etc. Will diurese and improve chf hopefully regurgitation as well. (Tarsha Phoenix MD) Altagracia Goodman Sep 13, 2017 12:03 Tarsha Phoenix MD Sep 13, 2017 15:35
--- NOTE | 2017-09-13 13:46 | HHI.PR ---
Subjective Remarks Patient remains confused repeating the same questions Objective Vitals Vital Signs Date Time Temp Pulse Resp B/P (MAP) Pulse Ox O2 Delivery O2 Flow Rate FiO2 09/13/17 12:05 97.6 85 21 141/99 (113) 95 09/13/17 09:58 Nasal Cannula 3.00 09/13/17 08:57 94 Nasal Cannula 3.00 09/13/17 08:05 97.3 96 20 161/77 (105) 94 09/13/17 05:26 94 Nasal Cannula 3.00 09/13/17 04:17 97.4 92 24 133/71 (91) 94 09/13/17 04:00 96 09/13/17 01:11 96 09/13/17 00:00 85 09/12/17 23:40 97.2 78 20 135/74 (94) 94 09/12/17 20:15 97.5 95 24 141/74 (96) 94 09/12/17 20:00 86 09/12/17 18:17 93 Nasal Cannula 3.00 09/12/17 16:37 97.8 93 20 147/78 (101) 93 Result Diagram: 09/11/17 1558 09/12/17 1020 Other Results Laboratory Tests Test 09/11/17 15:58 09/11/17 21:20 09/12/17 10:20 White Blood Count 12.1 TH/MM3 Red Blood Count 4.55 MIL/MM3 Hemoglobin 13.0 GM/DL Hematocrit 39.5 % Mean Corpuscular Volume 86.8 FL Mean Corpuscular Hemoglobin 28.5 PG Mean Corpuscular Hemoglobin Concent 32.9 % Red Cell Distribution Width 18.0 % Platelet Count 169 TH/MM3 Mean Platelet Volume 10.0 FL Neutrophils (%) (Auto) 85.3 % Lymphocytes (%) (Auto) 6.4 % Monocytes (%) (Auto) 7.2 % Eosinophils (%) (Auto) 0.5 % Basophils (%) (Auto) 0.6 % Neutrophils # (Auto) 10.3 TH/MM3 Lymphocytes # (Auto) 0.8 TH/MM3 Monocytes # (Auto) 0.9 TH/MM3 Eosinophils # (Auto) 0.1 TH/MM3 Basophils # (Auto) 0.1 TH/MM3 CBC Comment DIFF FINAL Differential Comment Prothrombin Time 16.0 SEC 12.4 SEC Prothromb Time International Ratio 1.6 RATIO 1.2 RATIO Activated Partial Thromboplast Time 31.4 SEC Blood Urea Nitrogen 20 MG/DL 19 MG/DL Creatinine 1.22 MG/DL 1.19 MG/DL Random Glucose 194 MG/DL 158 MG/DL Total Protein 6.9 GM/DL 6.3 GM/DL Albumin 2.9 GM/DL 2.5 GM/DL Calcium Level 8.6 MG/DL 8.3 MG/DL Magnesium Level 2.1 MG/DL Alkaline Phosphatase 172 U/L 139 U/L Aspartate Amino Transf (AST/SGOT) 30 U/L 40 U/L Alanine Aminotransferase (ALT/SGPT) 37 U/L 37 U/L Total Bilirubin 1.1 MG/DL 1.5 MG/DL Sodium Level 141 MEQ/L 142 MEQ/L Potassium Level 4.3 MEQ/L 4.1 MEQ/L Chloride Level 108 MEQ/L 108 MEQ/L Carbon Dioxide Level 24.0 MEQ/L 29.0 MEQ/L Anion Gap 9 MEQ/L 5 MEQ/L Estimat Glomerular Filtration Rate 56 ML/MIN 58 ML/MIN Total Creatine Kinase 115 U/L Creatine Kinase MB 4.8 NG/ML Troponin I 0.07 NG/ML 0.15 NG/ML B-Type Natriuretic Peptide 1164 PG/ML Hemoglobin A1c 7.2 % Thyroid Stimulating Hormone 3rd Gen 2.120 uIU/ML Imaging Last 72 hours Impressions Chest X-Ray 09/11/17 1542 Signed Impressions: Service Date/Time: Monday, September 11, 2017 16:19 - CONCLUSION: 1. Small bilateral pleural effusions, right larger than left, with associated atelectasis and/or airspace consolidation. 2. 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 Arnulfo Simmons MD Objective Remarks GENERAL: The patient awake and alert with periods of confusion. Patient appear tachypneic . SKIN: Purpuric rash bilateral forearms slightly worse on the right. Erythema on the right hand dorsally and also of the right medial forearm with no obvious open wound or drainage. Cirrhosis. CARDIOVASCULAR: Irregularly irregular with systolic ejection murmur. RESPIRATORY: Coarse breath sounds throughout. Decreased breath sounds in the bases. tachypneic GASTROINTESTINAL: Abdomen soft, non-tender MUSCULOSKELETAL: Right upper extremity with 2+ edema and starting in the dorsum of the hand and going up to the mid upper arm with associated erythema as above. 2+ edema bilateral lower extremities up to mid fonseca. 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 No calf tenderness. NEUROLOGICAL: Awake and alert. Baseline confusion per grand daughter. No focal deficits noted. Motor and sensory grossly within normal limits. 4 out of 5 muscle strength in all muscle groups. Normal speech. : Edematous scrotum with atrophic penis and evidence of urinary incontinence A/P Problem List: (1) Cellulitis ICD Codes: L03.90 - Cellulitis, unspecified Status: Acute Plan: Patient lives alone his daughter lives next door and helps with the cooking and cleaning follow blood cultures no growth for 2 days (09/13) Patient given vancomycin which was continued Elevate right upper extremity. ultrasound right upper extremity normal exam Scrotal ultrasound reviewed an reveals Large hernia containing fluid and loops of bowel extending into the right scrotum. Small left hydrocele (2) Diabetes mellitus type 2 in obese ICD Codes: E11.69 - Type 2 diabetes mellitus with other specified complication ; E66.9 - Obesity, unspecified Status: Chronic Plan: Diabetic diet, Accu-Chek, sliding scale insulin (3) Hyperlipidemia ICD Codes: E78.5 - Hyperlipidemia, unspecified Plan: Doesn't appear to be on statin as an outpatient. Not sure how aggressive the family wishes to be at this point with secondary preventative care. Can be further addressed as outpatient. (4) Hypertension ICD Codes: I10 - Essential (primary) hypertension Status: Chronic Plan: Provide blood pressure medication as needed. (5) Atrial fibrillation ICD Codes: I48.91 - Unspecified atrial fibrillation Plan: In review of outpatient records patient PCP notes 05/2017 recommending aspirin for anticoagulation per Cardiology Altagracia ISLAS note at last office visit 06/2017 patient was not in oral anticoagulation patient is a poor historian and unreliable. 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 Phoenix or PCP for further recommendations after DC (6) Urinary incontinence ICD Codes: R32 - Unspecified urinary incontinence Status: Chronic Plan: Has significant scrotal edema and possible hydrocele. Reports he has seen urologist as an outpatient in the past Provide Dangelo for accurate output determination and to avoid irritation from urinary incontinence. Scrotal ultrasound reviewed an reveals Large hernia containing fluid and loops of bowel extending into the right scrotum. Small left hydrocele (7) Volume overload ICD Codes: E87.70 - Fluid overload, unspecified Status: Acute Plan: Patient on Lasix 20 mg PO daily at home Start Lasix 80 mg IV now then 40 mg IV BID reports diuretics have been changed recently per cardiology consult outpatient music arranger Dr. Lizett Khalil I&O. 09/12 -09/13 patient has voided 2100 ml Echocardiogram 09/12/17 The left ventricular systolic function is [id number] reduced with an estimated ejection fraction in the range of 35-40%. Mild concentric left ventricular hypertrophy. Mildly dilated left ventricle. The left atrial size is moderately dilated. The right atrial size is zghy-[id number] dilated. Diffuse calcification of the aortic valve. [id number] aortic valve regurgitation. av mean gradient = 18 mm hg, reduced lv systolic function may be masking a more severe gradient so would estimate that there is at least moderate aortic valve stenosis. Aortic valve area is 1.0 cm. severe mitral valve regurgitation. There is severe tricuspid regurgitation. The estimated pulmonary arterial pressure is 69.9 mmHg. There is estimated [id number] pulmonary hypertension present (range 60-70 mmHg). Mild pulmonary valve regurgitation. Trace pericardial effusion. troponin elevated patient denies chest pain likely demand related cardiology also following per cardiology patient's metoprolol changed to Coreg 3.125 PO BID and lisinopril added 2.5 mg PO daily (8) Declining functional status ICD Codes: R53.81 - Other malaise Plan: Given patient's age, co-morbidities and declining functional status Palliative care consulted to establish goals of care Dr. Singh discussed patient's current status with the patient and two of the three daughters the patient and family agree to hospice consult and likely DC with Hospice Assessment and Plan Patient examined. Assessment and plan formulated with Cortney Prado PA-C. I agree with the above. - Pt tachypneic during rounds - Case d/w pt and daughters - pt/family request hospice - [facility]. Problem Qualifiers (1) Cellulitis: Qualified Codes: L03.113 - Cellulitis of right upper limb (2) Hyperlipidemia: Qualified Codes: E78.00 - Pure hypercholesterolemia, unspecified (3) Hypertension: Qualified Codes: I10 - Essential (primary) hypertension (4) Atrial fibrillation: Qualified Codes: I48.2 - Chronic atrial fibrillation (5) Volume overload: Qualified Codes: E87.70 - Fluid overload, unspecified Cortney Prado Sep 13, 2017 13:46 Nicola Singh DO Sep 13, 2017 23:31
--- NOTE | 2017-09-13 14:21 | PD.CONS ---
Consult Service Palliative Care Consult Requested By JANEL Edmonds . Primary Care Physician Non-Staff Reason for Consultation a. To assist with evaluation and management of symptoms including: Dyspnea, pain, confusion b. To assist medical decision maker(s) with: better understanding of current medical conditions; weighing benefits/burdens of medical treatment options; making medical treatment decisions. HPI History of Present Illness This is an 86-year-old male with an extensive cardiac history to include atrial fibrillation, coronary artery disease status post CABG 5 in 2007, SVT status post ablation, carotid stenosis, mitral regurgitation, hypertension, hyperlipidemia for which he follows with Dr. Phoenix. He additionally has some memory loss and is hard of hearing. He presented to the emergency room 09/11 with complaints of right arm and bilateral leg swelling, constant in duration, severe, worsening associated with shortness of breath and dyspnea on exertion. ED course: * Radiology: Venous Doppler was negative of the right arm. Scrotal ultrasound showed large hernia containing fluid and loops of bowel extending into the right scrotum with small left hydrocele. Chest x-ray showed small bilateral pleural effusions, right greater than left with associated atelectasis and/or airspace consolidation. Mildly enlarged cardiac silhouette, post CABG. * Laboratory: WBC 12.1, Hgb 13.0, HCT 39.5, PLT 169, sodium 142, potassium 4.1, BUN 19, creatinine 1.19, random glucose 158, hemoglobin A1c 7.2, total bilirubin 1.5, AST 40, ALT 37, alkaline phosphatase 139, troponin 0.07, 0.15, B natriuretic peptide 1164, TSH 2.120, PT 16.0, INR 1.6. * Microbiology: Blood cultures drawn in the ED are negative 2 days. 2-D echocardiogram done 09/12 shows a moderate to severely reduced ejection fraction of 35-40% with mild concentric left ventricular hypertrophy, biatrial dilation, mild to moderate aortic valve regurgitation,, at least moderate aortic valve stenosis, aortic valve area 1.0 cm, AV mean gradient 18 mmHg, severe tricuspid regurgitation, pulmonary artery pressure 69.9 mmHg, moderate to severe pulmonary hypertension, mild pulmonary valve regurgitation. He has been evaluated by cardiology and recommendations for aggressive diuresis, initiation of ACEI, transition of beta clarissa from metoprolol to carvedilol and continuation of warfare and, pending further discussion regarding and NOAC' s versus warfarin. On evaluation he is visibly dyspneic, daughter and granddaughter are at bedside. This was a dual visit with Dr. Singh who opined that hospice would be in the patient's best interest. 2 of the patient's 3 children attended the meeting, Marylou at bedside and Fauzia by phone. Patient was able to participate but appeared to lack the ability to concentrate well enough to have good insight. He deferred the decision making to his daughter's, but did understand that his heart function is poor and states he does not wish to live with these symptoms but would prefer comfort care. . Function/Cognitive Trajectory Has been living independently with support from his daughter. Physical therapy evaluation indicates easy fatigability, difficulty with transfers and supine-to- sit exercises and notes that he is unsafe to manage at home alone, recommending short-term rehabilitation to increase independence and safety. . Review of Systems ROS Limitations: Clinical Condition Constitutional: COMPLAINS OF: Fatigue, Weight gain Endocrine: DENIES: Heat/cold intolerance, Polydipsia, Polyuria, Polyphagia Eyes: DENIES: Blurred vision, Diplopia, Eye inflammation, Eye pain, Vision loss , Photosensitivity, Double Vision, Blind spots Ears, nose, mouth, throat: DENIES: Tinnitus, Hearing loss, Vertigo, Nasal discharge, Oral lesions, Throat pain, Hoarseness, Ear Pain, Running Nose, Epistaxis, Sinus Pain, Toothache, Odynophagia Respiratory: COMPLAINS OF: Shortness of breath Cardiovascular: COMPLAINS OF: Dyspnea on Exertion Gastrointestinal: DENIES: Abdominal pain, Black stools, Bloody stools, Constipation, Diarrhea, Nausea, Vomiting, Difficulty Swallowing, Anorexia, Dyspepsia or heartburn, Excessive gas, Bloating, Vomiting blood Genitourinary: COMPLAINS OF: Testicular Pain Musculoskeletal: DENIES: Joint pain, Muscle aches, Stiffness, Joint Swelling, Back pain, Neck pain, Decreased range of motion Integumentary: DENIES: Abnormal pigmentation, Nail changes, Pruritus, Rash, Nodules, Tumors, Excessive dryness, Non-healing sores Hematologic/Lymphatics: DENIES: Bruising, Lymphadenopathy, Prolonged bleed w/ proced, History of transfusions Immunologic/Allergic: DENIES: Eczema, Urticaria Neurologic: COMPLAINS OF: Abnormal gait, Poor Balance Psychiatric: COMPLAINS OF: Confusion Past Family Social History Coded Allergies: No Known Allergies (Verified Allergy, Unknown, 09/11/17) Past Medical History SVT status post ablation in 2009 Mitral regurgitation Hypertension Hyperlipidemia Carotid stenosis Coronary artery disease status post CABG 5 in 2007 Type 2 diabetes Atrial fibrillation, persistent Memory impairment Hard of hearing . Past Surgical History Cardiac catheterization 2007 Coronary artery bypass grafting 5 in 2007 Ablation for SVT 2010 Right thoracentesis 2007 Bilateral lumbar laminectomy L3-4, L4-5 from the left, posterior spinal fusion, lateral transverse process technique L3-L5, posterior lateral interbody fusion L3-4, L4-5, placement of interbody cage, L3-4, L4-5, right posterior iliac crest bone graft. . Reported Medications Reported Meds & Active Scripts Active Reported Furosemide 20 Mg Tab 20 Mg PO DAILY Multi-Vitamin Daily (Multiple Vitamin) 1 Tab Tab 1 Tab PO DAILY Aspirin Low Dose (Aspirin) 81 Mg Chew 81 Mg CHEW DAILY Fish Oil 1200 mg ([place]-3 Fatty Acids) 1 Cap Cap 1 Cap PO DAILY Calcium 500 +D (Calcium Carbonate-Cholecalciferol) 500-400 Mg-Unit Tab 1 Tab PO DAILY Atorvastatin (Atorvastatin Calcium) 40 Mg Tab 40 Mg PO HS . Current Medications Medications (Trade) Dose Ordered Sig/Sylvia Route Start Time Stop Time Status Last Admin (NovoLOG SUPPLEMENTAL SCALE) 1 ACHS SLIDING SCALE SQ 09/11/17 21:00 09/13/17 12:00 (Ultram) 50 mg Q8H PRN PO 09/11/17 20:45 (D50w (Vial) Inj) 50 ml UNSCH PRN IV PUSH 09/11/17 20:45 (Glucagon Inj) 1 mg UNSCH PRN OTHER 09/11/17 20:45 (Pill Splitter) 1 ea UNSCH PRN OTHER 09/11/17 21:00 (Lasix Inj) 40 mg BID@,18 IV PUSH 09/13/17 09:00 09/13/17 08:13 (Duoneb Neb) 1 ampule Q4HR NEB NEB 09/12/17 20:00 09/13/17 12:38 (KCl) 20 meq DAILY PO 09/12/17 17:00 09/13/17 08:12 Pharmacy Profile Note 0 ml @ 0 mls/hr UNSCH OTHER 09/12/17 17:15 Vancomycin HCl 1000 mg/Sodium Chloride 250 ml @ 250 mls/hr Q24H IV 09/13/17 20:00 Miscellaneous Information SPECIFIC LAB TO BE .. ONCE ONCE .XX 09/14/17 19:45 09/14/17 19:46 (Prinivil) 2.5 mg DAILY PO 09/14/17 09:00 (Coreg) 3.125 mg Q12HR PO 09/13/17 21:00 . Family History His mother in her 70s after falling and sustaining a hip fracture. The father's history is unknown. . Substance Use Tobacco: Smoked heavily in the past, quit 25 years ago. Alcohol: History of social use, none currently. Prescription med abuse: No history of prescription med abuse. Illicits: No history of illicit drug use. . Psychosocial History He was born and brought up in [place], worked at [employer]. 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 He was to his for 50 years and about 15 years ago. They had 3 daughters, Marylou , Azeb and Zuleyma. He moved to [place] in 1987. . Spiritual/Cultural Factors Nonimportant concept to the patient. Aware of the availability of toolmaker grade three. . Living Will: Completed, but not made available Health Care Surrogate: Never completed Durable Power of Child Development Consultant: Completed, but not made available Today's verbally stated goals: The patient and family expressed goals of relieving his dyspnea. . Physical Exam Vital Signs Date Time Temp Pulse Resp B/P (MAP) Pulse Ox O2 Delivery O2 Flow Rate FiO2 09/13/17 12:05 97.6 85 21 141/99 (113) 95 09/13/17 09:58 Nasal Cannula 3.00 09/13/17 08:57 94 Nasal Cannula 3.00 09/13/17 08:05 97.3 96 20 161/77 (105) 94 09/13/17 05:26 94 Nasal Cannula 3.00 09/13/17 04:17 97.4 92 24 133/71 (91) 94 09/13/17 04:00 96 09/13/17 01:11 96 09/13/17 00:00 85 09/12/17 23:40 97.2 78 20 135/74 (94) 94 09/12/17 20:15 97.5 95 24 141/74 (96) 94 09/12/17 20:00 86 09/12/17 18:17 93 Nasal Cannula 3.00 09/12/17 16:37 97.8 93 20 147/78 (101) 93 Exam CONSTITUTIONAL/GENERAL: This is an adequately nourished patient, in mild distress. TUBES/LINES/DRAINS: PIV 2. SKIN: No jaundice, rashes, or lesions. Ecchymoses on upper extremities. Right arm swollen with distal erythema. HEAD: Atraumatic. Normocephalic. EYES: Pupils equal and round and reactive. Extraocular motions intact. No scleral icterus. No injection or drainage. Fundi not examined. ENT: Hearing grossly normal. Nose without bleeding or purulent drainage. Throat without visible erythema, exudates, masses, or lesions. NECK: Trachea midline. Supple, nontender. No palpable thyroid enlargement or nodularity. CARDIOVASCULAR: Irregular rhythm, mildly tachycardic rate 2/6 systolic ejection murmur, no rub no gallop. RESPIRATORY/CHEST: Coarse breath sounds bilaterally, diminished with bibasilar crackles GASTROINTESTINAL: Abdomen soft, non-tender, nondistended. No hepato-splenomegaly , or palpable masses. No guarding. Bowel sounds present. GENITOURINARY: Without palpable bladder distension. Dangelo catheter in place. MUSCULOSKELETAL: Swelling in the right arm with erythema around the wrist and hand. Normal strength, range of motion. LYMPHATICS: No palpable cervical or supraclavicular adenopathy. NEUROLOGICAL: Arousable, lethargic, doses off during conversation, oriented 3. PSYCHIATRIC: No obvious anxiety/depression. no apparent hallucinations or other psychotic thought process. . Diagnostic Tests Laboratory Laboratory Tests Test 09/11/17 15:58 09/11/17 21:20 09/12/17 10:20 White Blood Count 12.1 TH/MM3 (4.0-11.0) Red Blood Count 4.55 MIL/MM3 (4.50-5.90) Hemoglobin 13.0 GM/DL (13.0-17.0) Hematocrit 39.5 % (39.0-51.0) Mean Corpuscular Volume 86.8 FL (80.0-100.0) Mean Corpuscular Hemoglobin 28.5 PG (27.0-34.0) Mean Corpuscular Hemoglobin Concent 32.9 % (32.0-36.0) Red Cell Distribution Width 18.0 % (11.6-17.2) Platelet Count 169 TH/MM3 (150-450) Mean Platelet Volume 10.0 FL (7.0-11.0) Neutrophils (%) (Auto) 85.3 % (16.0-70.0) Lymphocytes (%) (Auto) 6.4 % (9.0-44.0) Monocytes (%) (Auto) 7.2 % (0.0-8.0) Eosinophils (%) (Auto) 0.5 % (0.0-4.0) Basophils (%) (Auto) 0.6 % (0.0-2.0) Neutrophils # (Auto) 10.3 TH/MM3 (1.8-7.7) Lymphocytes # (Auto) 0.8 TH/MM3 (1.0-4.8) Monocytes # (Auto) 0.9 TH/MM3 (0-0.9) Eosinophils # (Auto) 0.1 TH/MM3 (0-0.4) Basophils # (Auto) 0.1 TH/MM3 (0-0.2) CBC Comment DIFF FINAL Differential Comment Prothrombin Time 16.0 SEC (9.8-11.6) 12.4 SEC (9.8-11.6) Prothromb Time International Ratio 1.6 RATIO 1.2 RATIO Activated Partial Thromboplast Time 31.4 SEC (24.3-30.1) Blood Urea Nitrogen 20 MG/DL (7-18) 19 MG/DL (7-18) Creatinine 1.22 MG/DL (0.60-1.30) 1.19 MG/DL (0.60-1.30) Random Glucose 194 MG/DL (74-106) 158 MG/DL (74-106) Total Protein 6.9 GM/DL (6.4-8.2) 6.3 GM/DL (6.4-8.2) Albumin 2.9 GM/DL (3.4-5.0) 2.5 GM/DL (3.4-5.0) Calcium Level 8.6 MG/DL (8.5-10.1) 8.3 MG/DL (8.5-10.1) Magnesium Level 2.1 MG/DL (1.5-2.5) Alkaline Phosphatase 172 U/L (45-117) 139 U/L (45-117) Aspartate Amino Transf (AST/SGOT) 30 U/L (15-37) 40 U/L (15-37) Alanine Aminotransferase (ALT/SGPT) 37 U/L (12-78) 37 U/L (12-78) Total Bilirubin 1.1 MG/DL (0.2-1.0) 1.5 MG/DL (0.2-1.0) Sodium Level 141 MEQ/L (136-145) 142 MEQ/L (136-145) Potassium Level 4.3 MEQ/L (3.5-5.1) 4.1 MEQ/L (3.5-5.1) Chloride Level 108 MEQ/L (98-107) 108 MEQ/L (98-107) Carbon Dioxide Level 24.0 MEQ/L (21.0-32.0) 29.0 MEQ/L (21.0-32.0) Anion Gap 9 MEQ/L (5-15) 5 MEQ/L (5-15) Estimat Glomerular Filtration Rate 56 ML/MIN (>89) 58 ML/MIN (>89) Total Creatine Kinase 115 U/L (39-308) Creatine Kinase MB 4.8 NG/ML (0.5-3.6) Troponin I 0.07 NG/ML (0.02-0.05) 0.15 NG/ML (0.02-0.05) B-Type Natriuretic Peptide 1164 PG/ML (0-100) Hemoglobin A1c 7.2 % (4.3-6.0) Thyroid Stimulating Hormone 3rd Gen 2.120 uIU/ML (0.358-3.740) . Result Diagram: 09/11/17 1558 09/12/17 1020 Microbiology Microbiology Date/Time Source Procedure Growth Status 09/11/17 21:20 Blood Peripheral Aerobic Blood Culture - Preliminary NO GROWTH IN 2 DAYS Resulted 09/11/17 21:20 Blood Peripheral Anaerobic Blood Culture - Preliminary NO GROWTH IN 2 DAYS Resulted 09/11/17 21:10 Blood Peripheral Aerobic Blood Culture - Preliminary NO GROWTH IN 2 DAYS Resulted 09/11/17 21:10 Blood Peripheral Anaerobic Blood Culture - Preliminary NO GROWTH IN 2 DAYS Resulted Imaging Last Impressions Chest X-Ray 09/13/17 0000 Signed Impressions: Service Date/Time: August 10:42 - CONCLUSION: A questionable infiltrate or density in the right lung base. Cardiac silhouette is widened. Devin A. Sevigny, MD Upper Extremity Ultrasound 09/11/17 0000 Signed Impressions: Service Date/Time: Monday, September 11, 2017 21:09 - CONCLUSION: Normal examination. Rick Pizano Jr., MD Scrotum Ultrasound 09/11/17 0000 Signed Impressions: Service Date/Time: Monday, September 11, 2017 21:23 - CONCLUSION: 1. Large hernia containing fluid and loops of bowel extending into the right scrotum. 2. Small left hydrocele. Rick Pizano Jr., MD Patient/Family Conference Present at Family Conference: DaughterMarylou was present at bedside with patient's granddaughter. Daughter Zuleyma attended family meeting by phone. This was a dual meeting partially attended by Dr. Singh. Reviewed clinical course to include findings a chest x-ray, laboratory studies, echocardiogram and opinions of specialist. Reviewed past history and trajectory of decline. Discussed possible options and goals of care to include intubation, cardiopulmonary resuscitation, chest compressions , shock, cardiac medication administration as well as potential outcomes of any needed acute intervention. Family, in conversation with the patient has decided against heroic measures given his underlying heart disease. They expressed their goal to be easing his work of breathing and making him comfortable. The below listed items were reviewed with family and all questions answered. . Family Conference Time (mins): 45 Family Conference Location: Bedside Issues Discussed: * Palliative care role, purpose, approach * Additional medical, psychosocial, and spiritual history * Patients general health, functional status, and cognitive changes in the months leading up to the current hospitalization * Patient/family understanding of the current medical problems * Patient/family understanding of prognosis * Patients goals of care as best understood from advance directives and/or conversations and/or values * Current medical treatment options and benefits/burdens of those options * Likely scenarios comparing ongoing aggressive care with a transition to comfort measures only * Questions answered to the best of my ability * Palliative care contact information provided Assessment and Plan Disease Oriented Problem List: (1) Declining functional status (2) Diabetes mellitus type 2 in obese (3) Hypertension (4) Hyperlipidemia (5) Cellulitis (6) Urinary incontinence (7) Atrial fibrillation (8) Volume overload Symptom Scale: (1) Dyspnea and respiratory abnormalities (2) Pain, generalized (3) Confusion Pertinent Non-Medical Issues Psychosocial: Spiritual: Legal: Ethical issues impacting care: Important Contacts Daughter: Zuleyma Mittal home , cell Daughter: Azeb Figueroa . Prognosis His prognosis is poor. 2-D echocardiogram shows reduced ejection fraction of 35 -40% with dilated chambers, mild to moderate aortic valve regurgitation and suspected moderate to severe aortic valve stenosis, severe mitral valve regurgitation, severe tricuspid valve regurgitation with pulmonary hypertension , estimated pulmonary artery pressure 69.9 mmHg. He is dyspneic at rest with head of bed elevated and at significant risk of cardiopulmonary compromise. Family has chosen hospice and patient will likely be transferred to the hospice care center once bed is available. . Code Status: No Code Plan PLAN: Legal decision maker: The patient has limited insight due to the severity of his disease and has deferred decision-making to his 3 daughters jointly. They are working together and goals are consistent between the 3 at this time. Goals: Comfort. CODE STATUS: DNR SYMPTOMS: * Dyspnea: Multifactorial to include prior history of smoking with likely lung compromise, previous coronary artery bypass grafting and severe valvular disorder with acute on chronic systolic heart failure. He is currently receiving furosemide and is diuresing but it is not adequate to relieve his symptoms. As family goals are comfort oriented and able to get relieving symptoms he would do well under the management of a hospice care center. The family is in agreement with this plan and hospice has been consulted. * Pain: He was admitted with right arm and scrotal pain. Right arm appears to have some possible cellulitis and scrotal ultrasound showed a large hernia containing fluid and loops of bowel extending into the right scrotum with small left hydrocele. He is currently receiving vancomycin for the cellulitis and tramadol is available for the pain, which has decreased with antibiotics and diuresis. * Confusion: Multifactorial to include cardiac and pulmonary dysfunction as well as advanced age. While he is currently oriented, he lacks the ability to concentrate well enough to have good insight into the prognosis. He has deferred final decision making to his children. SUMMARY This is an 86-year-old male with severe cardiac disease to include coronary artery disease, acute on chronic systolic heart failure, severe valvular dysfunction and atrial fibrillation. Family is requesting hospice services for comfort measures and symptom control. He is appropriate for hospice and they have been consulted. Palliative care will continue to follow the patient during hospital course as condition evolves, to assist patient/decision-maker with understanding of their medical conditions, weighing benefits/burdens of treatment options, for clarification of goals of treatment. Additionally will assist with any symptoms of palliative concern. . Time Spent Time Periods: 14:00-15:30 Face to Face Time (mins): 45 >50% Counseling/Coord of Care: Yes Thank you for the opportunity to participate in the care of Mr. Rodriguez. Attestation To help prompt me to consider important information that might be impacting today's encounter and assessment, information from prior notes written by myself or my colleagues may have been "brought forward" into today's note. My signature on this note, however, is an attestation that I personally performed the exam, history, and/or decision-making noted today, and, unless otherwise indicated, the interactions with patient, family, and staff as well as the review of records all occurred today. I also attest that the listed assessment and stated plan reflect my best clinical judgment today based on the combination of historical information, prior notes, and today's exam/ interactions. When time spent is documented, it refers only to time spent today by the signer, or if indicated, combined time spent today by collaborating physician/nurse practitioner. . Virgie Cadet Sep 13, 2017 2:21 pm
[2017-09-13 14:31] LABS: AUTOMATED NEUTROPHIL # 9.2 TH/MM3 (1.8-7.7); BASOPHIL % 0.4 % (0.0-2.0); EOSINOPHIL % 0.4 % (0.0-4.0); HEMATOCRIT 41.2 % (39.0-51.0); LYMPH % 9.5 % (9.0-44.0); LYMPHOCYTE # 1.1 TH/MM3 (1.0-4.8); MEAN CELL VOLUME 88.6 FL (80.0-100.0); MEAN CORPUSCULAR HGB CONC 31.6 % (32.0-36.0); MEAN PLATELET VOLUME 9.8 FL (7.0-11.0); MONO % 9.2 % (0.0-8.0); MONOCYTE # 1.1 TH/MM3 (0-0.9); NEUT % 80.5 % (16.0-70.0); PLATELET COUNT 128 TH/MM3 (150-450); RED BLOOD COUNT 4.64 MIL/MM3 (4.50-5.90); RED CELL DISTRIBUTION WIDTH 17.6 % (11.6-17.2); WHITE BLOOD COUNT 11.5 TH/MM3 (4.0-11.0)
[2017-09-13] MEDS ORDERED: METOLAZONE 5 MG TAB PO ONE (16:15)
[2017-09-13] MEDS ORDERED: VANCOMYCIN 1,000 MG/NS 250 ML IV SCH ×2 (20:00)
[2017-09-13] MEDS ORDERED: CARVEDILOL 3.125 MG TAB PO SCH (21:00)
[2017-09-14] MEDS ORDERED: LISINOPRIL 5 MG TAB PO SCH (09:00)
[2017-09-14] MEDS ORDERED: PHARMACY ORDERED LAB ONE (19:45)
== END 2017-09-13 23:32 | disposition hospice, inpatient (51) | DRG 602 ==
LOC: NEPC 15:33 → NEDA 18:48 → N04B 20:32
PROVIDERS: ADMIT Hospitalist; ATTEND Hospitalist
DX: L03.113 Cellulitis of right upper limb (principal); I50.23 Acute on chronic systolic (congestive) heart failure; I48.1 Persistent atrial fibrillation; I27.20 Pulmonary hypertension, unspecified; I11.0 Hypertensive heart disease with heart failure; I08.3 Combined rheumatic disorders of mitral, aortic and tricuspid valves; I65.29 Occlusion and stenosis of unspecified carotid artery; E11.9 Type 2 diabetes mellitus without complications; E66.9 Obesity, unspecified; H91.90 Unspecified hearing loss, unspecified ear; I25.10 Atherosclerotic heart disease of native coronary artery without angina pectoris; R06.82 Tachypnea, not elsewhere classified; R09.02 Hypoxemia; E78.00 Pure hypercholesterolemia, unspecified; R32 Unspecified urinary incontinence; Z66 Do not resuscitate; N43.3 Hydrocele, unspecified; K40.90 Unilateral inguinal hernia, without obstruction or gangrene, not specified as recurrent; M19.90 Unspecified osteoarthritis, unspecified site; N48.89 Other specified disorders of penis; Z85.820 Personal history of malignant melanoma of skin; Z79.01 Long term (current) use of anticoagulants; Z95.1 Presence of aortocoronary bypass graft; Z87.891 Personal history of nicotine dependence
CPT/HCPCS: 71045; 71046; 76870; 80053; 82550; 82552; 82948; 83036; 83735; 83880; 84443; 84484; 85025; 85610; 85730; 87040; 93005; 93306; 93971; 93975; 94640; 94664; J1815; J1940; J3370; J7050